=== PATIENT | female | born 1985 | race Caucasian/White ===

== ENCOUNTER → 2024-10-04 10:17 | Outpatient (REF) | payer OTHER, SELFPAY | LOC: HWRAD 10:17 | PROVIDERS: ATTENDING PHYSICIAN Obstetrics & Gynecology Gynecology; FAMILY PHYSICIAN Physician Assistant Medical | DX: Z30.431 Encounter for routine checking of intrauterine contraceptive device (principal) | CPT/HCPCS: 76830; 76856 ==